=== PATIENT | female | born 2000 | race Two or more races ===

== ENCOUNTER 2022-05-07 11:50 | Emergency (ER) | payer OTHER | END 2022-05-07 13:19 | disposition home or self-care (01) | LOC: CSHERS 11:50 | DX: J03.00 Acute streptococcal tonsillitis, unspecified (principal); E11.9 Type 2 diabetes mellitus without complications | CPT/HCPCS: 87430; 99283 ==

== ENCOUNTER 2022-10-29 18:07 | Emergency (ER) | payer OTHER ==
[2022-10-29] MEDS ORDERED: Acetaminophen 500 MG TAB ONE (20:11)
[2022-10-29] MEDS ORDERED: Metoclopramide HCl 10 MG/2 ML VIAL ONE (20:11)
[2022-10-29] MEDS ORDERED: Ketorolac Tromethamine 30 MG/ML VIAL ONE (20:11)
[2022-10-29 20:43] LABS: BHCG - Serum Negative (NEGATIVE)
[2022-10-29 20:44] LABS: Pregs Control Background? CLEAR/WHITE (CLR/WHITE); Pregs Control Bar Appear? YES (CONTROL BAR)
== END 2022-10-29 21:36 | disposition home or self-care (01) ==
LOC: CSHERS 18:07
DX: R51.9 Headache, unspecified (principal); E11.9 Type 2 diabetes mellitus without complications
CPT/HCPCS: 84703; 96365; 96375; J1885; J2765

== ENCOUNTER 2022-11-05 19:06 | Emergency (ER) | payer OTHER ==
[2022-11-05] MEDS ORDERED: Dexamethasone 10 MG/ML VIAL ONE (20:28)
== END 2022-11-05 20:27 | disposition home or self-care (01) ==
LOC: CSHERS 19:06
DX: J02.0 Streptococcal pharyngitis (principal); E11.9 Type 2 diabetes mellitus without complications; Z20.822 Contact with and (suspected) exposure to COVID-19
CPT/HCPCS: 87081; 87430; 99283; J1100; U0003; U0005